=== PATIENT | female | born 1980 | race Caucasian/White ===

== ENCOUNTER 2017-06-13 08:55 | Emergency (ER) | payer MEDICAID ==
--- NOTE | 2017-06-13 09:38 | ER Document Report ---
ED General - General Chief Complaint: Abscess Stated Complaint: ABSCESS IN VAGINAL AREA Time Seen by Provider: 06/13/17 09:36 Mode of Arrival: Ambulatory Information source: Patient Notes: Patient is a 37-year-old female who presents with labial abscess that has been present for the past week and a half. She has tried warm baths and warm compresses without any relief. She endorses small amount of bleeding but no drainage. Denies any fever, chills, vaginal discharge, abdominal pain, nausea, vomiting. She states she has had a history of these in her vaginal area and around her rectum that has required drainage previously. She has not taken any medications for this. TRAVEL OUTSIDE OF THE [place] IN LAST 30 DAYS: No - Related Data Allergies/Adverse Reactions: No Known Allergies Allergy (Unverified 06/13/17 09:01) Past Medical History - General Information source: Patient - Social History Smoking Status: Current Every Day Smoker Family History: Reviewed & Not Pertinent Renal/ Medical History: Denies: Hx Peritoneal Dialysis Review of Systems - Review of Systems Constitutional: See HPI EENT: No symptoms reported Cardiovascular: No symptoms reported Respiratory: No symptoms reported Gastrointestinal: No symptoms reported Genitourinary: No symptoms reported Female Genitourinary: See HPI Musculoskeletal: No symptoms reported Skin: See HPI Hematologic/Lymphatic: No symptoms reported Neurological/Psychological: No symptoms reported Physical Exam - Vital signs Vitals: Temp Pulse Resp BP Pulse Ox 97.9 F 108 H 16 132/87 H 95 06/13/17 08:59 06/13/17 08:59 06/13/17 08:59 06/13/17 08:59 06/13/17 08:59 Interpretation: Hypertensive, Tachycardic - Notes Notes: PHYSICAL EXAM: CONSTITUTIONAL: Alert and oriented, well-appearing and in no acute distress. HENT: Normocephalic, atraumatic. Moist mucous membranes. EYES: Pupils equal round and reactive to light, EOM intact. Sclera anicteric, conjunctiva are normal. No entrapment. HEART: Regular rate and rhythm without murmurs. LUNGS: CTAB and equal. No wheezes, rales or rhonchi. COUNTY ATTORNEY: right labia - 3 cm area of fluctuance consistent with abscess, no bartholin gland cyst noted. EXTREMITIES: Normal range of motion, no pitting edema. No cyanosis. Cap Refill < 3 seconds. NEURO: Cranial nerves grossly intact. Normal sensory/motor exams. SKIN: Warm and dry. Normal turgor. No rashes or lesions noted. Course - Re-evaluation Re-evalutation: 06/13/17 09:38 Patient seen and examined. Right labial abscess - will perform I&D. No systemic signs of infection. Wound culture obtained and pending. 06/13/17 10:18 I&D performed, patient tolerated well. Iodoform packing left in place, Discussed wound care and return in 2 days for packing removal/wound recheck At this time, will discharge with return precautions and follow-up recommendations. Verbal discharge instructions given at the bedside and opportunity for questions given. Medication warnings reviewed. Patient is in agreement with this plan and has verbalized understanding of return precautions and the need for primary care follow-up in the next 24-72 hours. - Vital Signs Vital signs: Temp Pulse Resp BP Pulse Ox 97.9 F 108 H 16 132/87 H 95 06/13/17 08:59 06/13/17 08:59 06/13/17 08:59 06/13/17 08:59 06/13/17 08:59 Procedures - Incision and Drainage Right Labia Type: Simple Anesthetic type: 1% Lidocaine mL's of anesthetic: 7 Blade size: 11 I&D procedure: Betadine prep applied, Iodoform packing placed, Sterile dressing applied, Other - Irrigated with saline 40 cc's Incision Method: Incision made by scalpel Amount/type of drainage: 5 cc's of purulent/serosanguinous drainage Notes: 06/13/17 10:17 iodoform packing left in place Female anatomy: 1 - 3 cm fluctuant abscess to external labial majora Discharge - Discharge Clinical Impression: Abscess of right genital labia Condition: Stable Disposition: HOME, SELF-CARE Additional Instructions: ABSCESS: You have an abscess (boil). This a pus-forming infection, usually due to staph. Some boils may be left to drain on their own, but most require lancing. From the time the tender lump first appears, it may be three or four days before the abscess is ready to mallory. Local heat and rest help at this stage of treatment. An antibiotic may prevent spread of the infection. Once the abscess is opened, packing may be placed into it. This is done so pus is not sealed inside by premature closure of the cavity. The packing will be removed at your follow-up visit or you may be advised to remove it yourself at home. Sometimes this packing must be replaced a few times during healing. The wound will heal with surprisingly little scar. Depending on the size and location of an abscess, healing can take one to four weeks. You may shower and wash the area around the incision site two or three times a day. Antibiotics may be prescribed, but are usually not necessary after an abscess has been drained. If you develop fever, chills, worsening pain, or increasing swelling in the area, call the doctor or return immediately. POST INCISION AND DRAINAGE: You have had an incision made to allow drainage of an abscess. The incision must remain open so that pus and debris can drain from the wound. If the abscess cavity is large, packing is placed. This keeps the tissues from collapsing and trapping pus inside, while the body shrinks the cavity. The packing may need to be replaced every day or two. The physician will instruct you on the packing. Keep a bulky dressing over the area. Replace it if it becomes saturated with blood or pus. Do not disturb the packing (if present). You may shower and cleanse the area with gentle soap and warm water two or three times a day. Local warmth may be soothing, and may promote faster healing. Return if you develop high fever or chills, or if you note spreading redness, increasing swelling, or increasing tenderness. MRSA CELLULITIS: You have an infection of your skin and underlying soft tissues called cellulitis. This is due to bacteria, which can enter through any break in the skin, or even through an irritated hair follicle. Untreated, cellulitis will usually worsen and may form an abscess which requires draining. Although many bacterial organisms can cause cellulitis and abscess formations, the most likely bacteria is Methicillin-Resistant Staph Aureus, or MRSA for short. Antibiotics are required. Usually, warm packs or warm soaks, and elevation of the infected area are recommended. You should start getting better within 24 to 36 hours. Most infections respond quickly to the right medication. Follow-up care is important, however, to check for abscess (boil) formation, unsuspected foreign body, or resistant infection. If you develop fever, chills, or if the area of infection is becoming rapidly more swollen or painful, call the doctor at once. ORAL NARCOTIC MEDICATION: You have been given a prescription for pain control. This medication is a narcotic. It's best taken with food, as nausea can result if taken on an empty stomach. Don't operate machinery or drive within six hours of taking this medication. Do not combine this medicine with alcohol, or with any medication which can cause sedation (such as cold tablets or sleeping pills) unless you get permission from the physician. Narcotics tend to cause constipation. If possible, drink plenty of fluids and eat a diet high in fiber and fruits. TRIMETHOPRIM-SULFA: You have been given a prescription for trimethoprim-sulfa (TMS, Septra, Bactrim). This is a combination antibiotic of the sulfa class, often used for urinary tract infections, middle ear infections, bronchitis, shigella intestinal infection, and Pneumocystis pneumonia. TMS is usually well-tolerated. Occasional side effects include nausea and decreased appetite. Septra is not recommended for infants less than two months of age. Do not take this medication if you have experienced severe side effects or allergy to sulfa medicine. You should stop this medicine at once and contact your physician if you develop any rash, joint pain, shortness of breath, bruising, or jaundice ( yellow color in the skin), or if you develop any other new or unusual symptoms. FOLLOW-UP CARE: Most simple abscesses will not require a follow up visit. If you had packing placed in the abscess, remove it as instructed by the physician. If you have been referred to a physician for follow-up care, call the physicians office for an appointment as you were instructed or within the next two days. If you experience worsening or a significant change in your symptoms, return to the Emergency Department at any time for re-evaluation. Prescriptions: Hydrocodone/Acetaminophen [Vicodin 5-300 mg Tablet] 1 tab PO ASDIR PRN #15 tab PRN Reason: Sulfamethoxazole/Trimethoprim [Bactrim Ds Tablet] 1 tab PO BID 7 Days tablet Forms: Elevated Blood Pressure Referrals: JENNA CONSTANTINO DO [Primary Care Provider] - 06/15/17 (for packing removal and wound check)
[2017-06-13] MEDS ORDERED: LIDOCAINE 1% INJ-PF (10 MG/ML) 30 ML SDV INJ ONE (09:43)
[2017-06-13] MEDS ORDERED: HYDROCODONE/ACETAMINOPHEN 5-325 MG TABLET PO ONE (09:45)
[2017-06-13 10:38] VITALS: BP 131/94
== END 2017-06-13 10:35 | disposition home or self-care (01) ==
LOC: ER 08:55
PROC: 0U9MXZZ Drainage of Vulva, External Approach (ICD-10-PCS; principal; 2017-06-13)
DX: N76.4 Abscess of vulva (principal); F17.200 Nicotine dependence, unspecified, uncomplicated
CPT/HCPCS: 99283; 87070; 87205; 87075; 87077; 87186; 56405; A6266; J3490

== ENCOUNTER 2018-02-26 18:41 | Emergency (ER) | payer MEDICAID ==
[2018-02-26] MEDS ORDERED: ACETAMINOPHEN 325 MG TABLET PO ONE (19:36)
--- NOTE | 2018-02-26 19:39 | ER Document Report ---
ED Medical Screen (RME) - General Chief Complaint: Vaginal Bleeding Stated Complaint: VAGINAL BLEEDING Time Seen by Provider: 02/26/18 19:35 Notes: Patient is a 37-year-old female who presents emergency department the chief complaint of vaginal bleeding that started over the past 2 days. States describes it as mild to moderate spotting without any clots or usage of pads. She denies any bleeding requiring pads to be changed every 20 minutes. Patient states that this is abnormal for her. Her last menstrual period was February 11- . She denies any history of abnormal vaginal bleeding in the past. 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 Otherwise denies any other medical problems. She admits to cramping pelvic and suprapubic pain worse on the right side but bilateral TRAVEL OUTSIDE OF THE [place] IN LAST 30 DAYS: No - Related Data Allergies/Adverse Reactions: No Known Allergies Allergy (Verified 02/26/18 18:43) Past Medical History Renal/ Medical History: Denies: Hx Peritoneal Dialysis Past Surgical History: Reports: Hx Orthopedic Surgery - Immunizations Hx Diphtheria, Pertussis, Tetanus Vaccination: Yes Physical Exam - Vital signs Vitals: Temp Pulse Resp BP Pulse Ox 97.6 F 85 16 138/75 H 100 02/26/18 19:34 02/26/18 19:34 02/26/18 19:34 02/26/18 19:34 02/26/18 19:34 - Notes Notes: PHYSICAL EXAM GENERAL: Alert, interacts well. ABDOMEN: Soft, nondistended, nontender. No guarding, rebound, or rigidity.. EXTREMITIES: Moves all 4 extremities spontaneously. No edema, No cyanosis. NEUROLOGICAL: Alert and oriented x4. Normal speech. PSYCH: Normal affect, normal mood. Course - Vital Signs Vital signs: Temp Pulse Resp BP Pulse Ox 97.6 F 85 16 138/75 H 100 02/26/18 19:34 02/26/18 19:34 02/26/18 19:34 02/26/18 19:34 02/26/18 19:34 Doctor's Discharge - Discharge Referrals: JENNA CONSTANTINO DO [Primary Care Provider] - Follow up as needed
[2018-02-26 20:29] LABS: ABSOLUTE BASOPHILS # (AUTO) 0.1 10^3/uL (0.0-0.2); ABSOLUTE EOSINOPHILS # (AUTO) 0.2 10^3/uL (0.0-0.6); ABSOLUTE MONOCYTES (AUTO) 0.4 10^3/uL (0.1-1.4); ABSOLUTE NEUT (AUTO) 8.1 10^3/uL (1.7-8.2); BASOPHILS % (AUTO) 0.5 % (0-2); EOSINOPHILS % (AUTO) 1.5 % (0-6); HEMATOCRIT 36.5 % (36.0-47.0); HEMOGLOBIN 11.9 g/dL (12.0-15.5); LYMPHOCYTES % (AUTO) 31.2 % (13-45); MEAN CORPUSCULAR HEMOGLOBIN 25.1 pg (27.0-33.4); MEAN CORPUSCULAR HGB CONC 32.6 g/dL (32.0-36.0); MEAN CORPUSCULAR VOLUME 77 fl (80-97); MONOCYTES % (AUTO) 3.4 % (3-13); PLATELET COUNT 482 10^3/uL (150-450); RED BLOOD COUNT 4.74 10^6/uL (3.72-5.28); RED CELL DISTRIBUTION WIDTH 19.1 % (11.5-14.0); SEGMENTED NEUTROPHILS % (AUTO) 63.4 % (42-78); TOTAL CELLS COUNTED % (AUTO) 100 %; WHITE BLOOD COUNT 12.8 10^3/uL (4.0-10.5)
[2018-02-26 20:39] LABS: APPEARANCE,URINE SLIGHTLY-CLOUDY; BILIRUBIN,URINE NEGATIVE (NEGATIVE); COLOR,URINE YELLOW; GLUCOSE, URINE NEGATIVE (NEGATIVE); KETONES,URINE NEGATIVE (NEGATIVE); LEUKOCYTE ESTERASE,URINE LARGE (NEGATIVE); NITRITE,URINE NEGATIVE (NEGATIVE); PROTEIN,URINE NEGATIVE (NEGATIVE); URINE SPECIFIC GRAVITY 1.014; UROBILINOGEN,URINE NEGATIVE mg/dL (<2.0)
--- NOTE | 2018-02-26 22:17 | ER Document Report ---
ED General - General Chief Complaint: Vaginal Bleeding Stated Complaint: VAGINAL BLEEDING Time Seen by Provider: 02/26/18 19:35 Notes: Patient is a 37-year-old female who presents emergency department the chief complaint of vaginal bleeding that started over the past 2 days. States describes it as mild to moderate spotting without any clots or usage of pads. She denies any bleeding requiring pads to be changed every 20 minutes. Patient states that this is abnormal for her. Her last menstrual period was February 11- . She denies any history of abnormal vaginal bleeding in the past. States that she does follow with an [employer] in her hometown and had a normal Pap smear a year ago but was told that she was positive for HPV. Otherwise denies any other medical problems. She admits to cramping pelvic and suprapubic pain worse on the right side but bilateral TRAVEL OUTSIDE OF THE [place] IN LAST 30 DAYS: No - Related Data Allergies/Adverse Reactions: No Known Allergies Allergy (Verified 02/26/18 18:43) Past Medical History - Social History Smoking Status: Current Every Day Smoker Frequency of alcohol use: Occasional Family History: Reviewed & Not Pertinent Patient has suicidal ideation: No Patient has homicidal ideation: No Renal/ Medical History: Denies: Hx Peritoneal Dialysis Past Surgical History: Reports: Hx Orthopedic Surgery, Hx Tubal Ligation - Immunizations Hx Diphtheria, Pertussis, Tetanus Vaccination: Yes Review of Systems - Review of Systems Constitutional: No symptoms reported EENT: No symptoms reported Cardiovascular: No symptoms reported Respiratory: No symptoms reported Gastrointestinal: No symptoms reported Genitourinary: See HPI Female Genitourinary: See HPI Musculoskeletal: No symptoms reported -: Yes All other systems reviewed and negative Physical Exam - Vital signs Vitals: Temp Pulse Resp BP Pulse Ox 97.6 F 85 16 138/75 H 100 02/26/18 19:34 02/26/18 19:34 02/26/18 19:34 02/26/18 19:34 02/26/18 19:34 - Notes Notes: PHYSICAL EXAM GENERAL: Alert, interacts well. HEAD: Normocephalic, atraumatic. EYES: Pupils equal, round, and reactive to light. Extraocular movements intact. ENT: Oral mucosa moist, tongue midline. NECK: Full range of motion. Supple. Trachea midline. LUNGS: Clear to auscultation bilaterally, no wheezes, rales, or rhonchi. No respiratory distress. HEART: Regular rate and rhythm. No murmurs, gallops, or rubs. ABDOMEN: Soft, nondistended, nontender. No guarding, rebound, or rigidity.. Bowel sounds present in all 4 quadrants. FEMALE : Normal external exam. No evidence of lesions, lacerations, bruising or vesicles. Speculum exam normal cervix closed. No evidence of vaginal discharge with odor. No evidence of lesions. Mild bleeding within the vaginal vault. Bimanual exam normal no cervical motion tenderness. No adnexal mass or adnexal tenderness. EXTREMITIES: Moves all 4 extremities spontaneously. No edema, radial and dorsalis pedis pulses 2/4 bilaterally. No cyanosis. NEUROLOGICAL: Alert and oriented x4. Normal speech. PSYCH: Normal affect, normal mood. SKIN: Warm, dry, normal turgor. No rashes or lesions noted. Course - Re-evaluation Re-evalutation: 02/27/18 00:09 Presentation is most consistent with dysfunctional uterine bleeding and otherwise well-appearing patient. Her hemoglobin was within normal limits. She is not . No tachycardia or hypotension. Examination with mild Right adenexal discomfort. She denies bleeding through more than 2 pads an hour at any point in time. US without abnormalities. Minimal bleeding at this time. Patient will be started on oral control pills to help discontinue the bleeding. Declining STD prophylaxis She has been encouraged to follow-up with [employer]. Return precautions have been discussed. - Vital Signs Vital signs: Temp Pulse Resp BP Pulse Ox 97.4 F 77 16 114/66 99 02/27/18 00:26 02/27/18 00:26 02/27/18 00:26 02/27/18 00:26 02/27/18 00:26 - Laboratory Result Diagrams: 02/26/18 20:00 Laboratory results interpreted by me: 02/26/18 02/26/18 20:00 20:00 WBC 12.8 H Hgb 11.9 L MCV 77 L MCH 25.1 L RDW 19.1 H Plt Count 482 H Urine Blood LARGE H Ur Leukocyte Esterase LARGE H - Diagnostic Test Radiology reviewed: Reports reviewed Discharge - Discharge Clinical Impression: Dysfunctional uterine bleeding Condition: Good Disposition: HOME, SELF-CARE Additional Instructions: VAGINAL BLEEDING: You are having an episode of abnormal bleeding. Causes of abnormal vaginal bleeding can include miscarriage or tubal , tumors such as cancer or benign fibroids, medication effects, or hormone imbalance. Testing can eliminate unsuspected , tumors, or infection as a cause. "Dysfunctional uterine bleeding" is due to hormone imbalance, and is especially common at times when the normal cycle is disturbed -- whether by recent , use of control pills or hormones, or impending menopause. If the bleeding is innocent, most commonly a short course of hormones is given to restore the uterus to normal. Sometimes, the normal menstrual cycle corrects itself naturally. Sometimes , brief hormone therapy, or even a D&C is required. Your physician will advise you. Treatment for anemia may be required if bleeding is severe. You should rest and avoid intercourse until the bleeding is controlled. Call the doctor or return for re-examination if you feel faint, have increasing pain, or have a major increase in the amount of bleeding. NORMAL EXAM AND WORKUP: At this time, except for vaginal bleeding, your examination and workup show no significant abnormality. No significant abnormal physical findings were noted. All laboratory, EKG, and imaging (x-ray, CT scans, ultrasound) studies that were ordered show no significant abnormality. Although your examination and all studies that were ordered showed no significant abnormal finding, there are no examinations and no studies that are 100% accurate. There is always the possibility that some abnormality could exist and not be detected with physical examination or within the limits and capabilities of laboratory and other studies. You should return or follow up as you were instructed on your visit today for further evaluation if your symptoms do not resolve. PROVERA: Provera (medroxyprogesterone) is usually used to stop excessive uterine bleeding or to regulate the periods. Provera is a form of progesterone, the hormone that stimulates the uterus lining to mature during the second half of your cycle. High doses of Provera can usually stop uterine bleeding. It's most useful for the abnormal bleeding that occurs when periods are irregular, such as around menopause. Provera usually isn't helpful for bleeding that occurs after Depo-Provera or Norplant. There is often another heavy "period" when you finish the Provera. Afterwards, the periods usually return to normal within a month or two. Contact your doctor if bleeding becomes more severe, or if you develop abdominal pain, lightheadedness, fever, or other new symptoms. FOLLOW-UP CARE: If you have been referred to a physician for follow-up care, call the physician s office for an appointment as you were instructed or within the next two days. If you experience worsening or a significant change in your symptoms (very heavy bleeding with large clots of blood, passage of tissue, more severe abdominal / pelvic pain or cramping, feeling faint or severe weakness, fever, etc.), notify the physician immediately or return to the Emergency Department at any time for re-evaluation. OBSTETRIC-GYNECOLOGIC (OB-INSURANCE SERVICE REPRESENTATIVE) [facility] IN [place]: [facility] [address] [place] [address] [phone] Prescriptions: Medroxyprogesterone Acet [Provera 10 Mg Tablet] 10 mg PO DAILY #7 tablet Forms: Parent Work Note Referrals: JENNA CONSTANTINO DO [NO LOCAL MD] - Follow up as needed MIGUELINA GONZALEZ MD [ACTIVE STAFF] - Follow up in 3-5 days
[2018-02-26 23:31] LABS: T.VAGINALIS (WET MOUNT) NO TRICHOMONAS SEEN; WBCS (WET MOUNT) RARE WBCS SEEN; YEAST (WET MOUNT) NO YEAST SEEN
[2018-02-26 23:32] LABS: RBCS (WET MOUNT) 3+ RBCS SEEN
--- NOTE | 2018-02-27 00:02 | RADIOLOGY REPORT (SQ) ---
EXAM DESCRIPTION: Complete pelvic ultrasound CLINICAL HISTORY: 37 years Female, vaginal bleeding for 3 days, right adnexal pain COMPARISON: None. TECHNIQUE: Complete pelvic ultrasound with transvaginal imaging. Limited color and spectral Doppler imaging of the right ovary. LMP 02/12/2018 FINDINGS: Uterus measures 7.4 x 5.0 x 4.1 cm. Endometrial thickness of 0.9 cm. Nabothian cysts in the cervix. No myometrial abnormalities. The cervix measures 2.1 cm in length and is closed. The left ovary is not identified. The right ovary measures 4.2 x 2.9 x 2.2 cm. Arterial and venous blood flow confirmed in the right ovary. No large adnexal masses. No free pelvic fluid. IMPRESSION: 1. No sonographic abnormality identified in the pelvis. The left ovary is not visualized.
[2018-02-27 00:28] VITALS: BP 114/66
[2018-02-27 00:58] LABS: CHLAM PCR NOT DETECTED (NOT DETECT); GON PCR NOT DETECTED (NOT DETECT)
== END 2018-02-27 00:30 | disposition home or self-care (01) ==
LOC: ER 18:41
DX: N93.8 Other specified abnormal uterine and vaginal bleeding (principal); F17.200 Nicotine dependence, unspecified, uncomplicated; Z98.51 Tubal ligation status
CPT/HCPCS: 36415; 76830; 81001; 81025; 85025; 87210; 87491; 87591; 93976; 99284

== ENCOUNTER 2018-06-21 13:16 | Emergency (ER) | payer MEDICAID ==
[2018-06-21 13:40] VITALS: BP 129/64
[2018-06-21] MEDS ORDERED: PROCHLORPERAZINE EDISYLATE INJ 10 MG/2 ML VIAL IV ONE (14:30)
[2018-06-21] MEDS ORDERED: KETOROLAC TROMETHAMINE INJ/PF 30 MG/1 ML SDV IV ONE (14:30)
[2018-06-21] MEDS ORDERED: NORMAL SALINE 1000 ML 1,000 ML IV ONE (14:30)
[2018-06-21] MEDS ORDERED: DIPHENHYDRAMINE HCL 50 MG/ML VIAL IV ONE (14:30)
--- NOTE | 2018-06-21 14:33 | ER Document Report ---
ED Medical Screen (RME) - General Chief Complaint: Headache Stated Complaint: HEADACHE Time Seen by Provider: 06/21/18 14:26 Mode of Arrival: Ambulatory Information source: Patient Notes: Patient is a 38-year-old female who presents with chief complaint of headache 4 days. Patient reports that she woke up 4 days ago with a headache on one side of her head and it has spread to the entire head. Patient denies ever had a headache like this before. Patient denies any fever or recent illness. Patient reports she has tried Aleve without any success. Exam: Patient alert, oriented. No neurological deficits noted. Lung sounds clear to auscultation. I have greeted and performed a rapid initial assessment of this patient. A comprehensive ED assessment and evaluation of the patient, analysis of test results and completion of the medical decision making process will be conducted by additional ED providers. Dictation of this chart was performed using voice recognition software; therefore, there may be some unintended grammatical errors. TRAVEL OUTSIDE OF THE [place] IN LAST 30 DAYS: No - Related Data Allergies/Adverse Reactions: No Known Allergies Allergy (Verified 06/21/18 13:17) Past Medical History - Social History Chew tobacco use (# tins/day): No Frequency of alcohol use: None Drug Abuse: None Neurological Medical History: Reports: Hx Migraine Endocrine Medical History: Reports: Hx Diabetes Mellitus Type 2 Renal/ Medical History: Denies: Hx Peritoneal Dialysis Past Surgical History: Reports: Hx Orthopedic Surgery, Hx Tubal Ligation - Immunizations Hx Diphtheria, Pertussis, Tetanus Vaccination: Yes Physical Exam - Vital signs Vitals: Temp Pulse Resp BP Pulse Ox 98.7 F 86 16 129/64 H 98 06/21/18 13:39 06/21/18 13:39 06/21/18 13:39 06/21/18 13:39 06/21/18 13:39 Course - Vital Signs Vital signs: Temp Pulse Resp BP Pulse Ox 98.7 F 86 16 129/64 H 98 06/21/18 13:39 06/21/18 13:39 06/21/18 13:39 06/21/18 13:39 06/21/18 13:39
== END 2018-06-21 17:15 | disposition left against medical advice (07) ==
LOC: ER 13:16
DX: R51 Headache (principal)
CPT/HCPCS: 99281; 96361; 96374; 96375; J1200; J1885; J0780

== ENCOUNTER 2018-06-23 02:27 | Emergency (ER) | payer MEDICAID ==
[2018-06-23 02:44] VITALS: BP 115/68
[2018-06-23] MEDS ORDERED: ONDANSETRON 4 MG TAB.RAPDIS PO ONE (03:42)
== END 2018-06-23 04:40 | disposition left against medical advice (07) ==
LOC: ER 02:27
DX: Z53.21 Procedure and treatment not carried out due to patient leaving prior to being seen by health care provider (principal)
CPT/HCPCS: S0119

== ENCOUNTER 2018-11-19 05:25 | Day surgery (SDC) | payer MEDICAID ==
[2018-11-12 10:46] LABS: HEMOGLOBIN 11.4 g/dL (12.0-15.5); MEAN CORPUSCULAR HEMOGLOBIN 23.8 pg (27.0-33.4); MEAN CORPUSCULAR HGB CONC 32.6 g/dL (32.0-36.0); MEAN CORPUSCULAR VOLUME 73 fl (80-97); PLATELET COUNT 413 10^3/uL (150-450); RED CELL DISTRIBUTION WIDTH 19.3 % (11.5-14.0); WHITE BLOOD COUNT 13.2 10^3/uL (4.0-10.5)
[2018-11-12 11:11] LABS: APPEARANCE,URINE SLIGHTLY-CLOUDY; BILIRUBIN,URINE NEGATIVE (NEGATIVE); COLOR,URINE YELLOW; GLUCOSE, URINE 50 mg/dL (NEGATIVE); KETONES,URINE NEGATIVE (NEGATIVE); LEUKOCYTE ESTERASE,URINE LARGE (NEGATIVE); NITRITE,URINE NEGATIVE (NEGATIVE); PROTEIN,URINE NEGATIVE (NEGATIVE); URINE SPECIFIC GRAVITY 1.009; UROBILINOGEN,URINE NEGATIVE mg/dL (<2.0)
[2018-11-12 11:12] LABS: ALANINE AMINOTRANSFERASE 26 U/L (9-52); ALBUMIN 4.5 g/dL (3.5-5.0); ALKALINE PHOSPHATASE 82 U/L (38-126); ANION GAP 9 (5-19); ASPARTATE AMINO TRANSFERASE 23 U/L (14-36); BILIRUBIN,DIRECT 0.3 mg/dL (0.0-0.4); BILIRUBIN,TOTAL 0.3 mg/dL (0.2-1.3); BLOOD UREA NITROGEN 7 mg/dL (7-20); CALCIUM 9.7 mg/dL (8.4-10.2); CARBON DIOXIDE 27 mmol/L (22-30); CHLORIDE 102 mmol/L (98-107); GLUCOSE 189 mg/dL (75-110); POTASSIUM 4.9 mmol/L (3.6-5.0); SODIUM 138.4 mmol/L (137-145); TOTAL PROTEIN 7.4 g/dL (6.3-8.2)
[~2018-11-19 05:25] MED LIST: CEFAZOLIN 1 GM/D5W RTU 1 GM/50 ML RTUPB IV ONE; CEFAZOLIN 1 GM/D5W RTU 1 GM/50 ML RTUPB IV PRN; LACTATED RINGERS 1000 ML IV PRN; LIDOCAINE 0.5% INJ-PF (5 MG/ML) 50 ML SDV SUBCUT PRN
[2018-11-19 06:17] LABS: HEMATOCRIT 34.4 % (36.0-47.0); HEMOGLOBIN 11.1 g/dL (12.0-15.5); MEAN CORPUSCULAR HEMOGLOBIN 23.8 pg (27.0-33.4); MEAN CORPUSCULAR HGB CONC 32.3 g/dL (32.0-36.0); MEAN CORPUSCULAR VOLUME 74 fl (80-97); PLATELET COUNT 356 10^3/uL (150-450); RED BLOOD COUNT 4.67 10^6/uL (3.72-5.28); RED CELL DISTRIBUTION WIDTH 19.6 % (11.5-14.0); WHITE BLOOD COUNT 10.8 10^3/uL (4.0-10.5)
[2018-11-19] MEDS ORDERED: MIDAZOLAM 2 MG/2 ML INJ ONE (07:03)
[2018-11-19] MEDS ORDERED: PROPOFOL INJ 200 MG/20 ML VIAL IV ONE ×2 (07:03→09:01)
[2018-11-19] MEDS ORDERED: EPHEDRINE SULFATE INJ 50 MG/1 ML AMPULE ONE (07:03)
[2018-11-19] MEDS ORDERED: FENTANYL CITRATE INJ/PF 250 MCG/5 ML AMPULE ONE (07:03)
[2018-11-19] MEDS ORDERED: BUPIVACAINE HCL 0.25 % INJ/PF (2.5 MG/1 ML) 30 ML VIAL ONE (07:07)
[2018-11-19] MEDS ORDERED: PROMETHAZINE HCL INJ 25 MG/1 ML VIAL IV PRN ×2 (08:01)
[2018-11-19] MEDS ORDERED: FENTANYL CITRATE INJ/PF 100 MCG/2 ML AMPUL IV PRN ×3 (08:01)
[2018-11-19] MEDS ORDERED: DIPHENHYDRAMINE HCL 50 MG/ML VIAL IV PRN (08:01)
[2018-11-19] MEDS ORDERED: OXYCODONE-ACETAMINOPHEN 5-325 MG TABLET PO PRN ×3 (08:01→09:14)
[2018-11-19] MEDS ORDERED: MEPERIDINE HCL/PF INJ 25 MG/1 ML DISP.SYRIN IV PRN (08:01)
[2018-11-19] MEDS: FENTANYL CITRATE INJ/PF 100 MCG/2 ML AMPUL ONE ×2 (09:02→09:08)
--- NOTE | 2018-11-19 09:07 | OPERATIVE REPORT E ---
Operative Report NAME: ALISE SUERO : 1980 AGE: 38Y DATE OF SURGERY: 11/19/2018 ROOM: PREOPERATIVE DIAGNOSIS: Menorrhagia. POSTOPERATIVE DIAGNOSIS: Menorrhagia. OPERATION: [facility]. SURGEON: Paris GONZALEZ M.D. ANESTHESIA: General. ESTIMATED BLOOD LOSS: Approximately 150 mL. TISSUE REMOVED: Uterus and tubes. PROCEDURE: The patient was placed in the dorsal lithotomy position, prepped and draped in the usual sterile fashion. A speculum was placed. The cervix was visualized and grasped with a single-tooth tenaculum. Hulka tenaculum was placed and single-tooth tenaculum was removed. Attention was turned to the abdomen where a subumbilical semilunar incision was made. Trocar was introduced with insufflation of the abdomen. The tubes, uterus, and ovaries were visualized. There were adhesions from the bowel to the left adnexal wall but did not encumber the removal of the uterus and tubes. A second puncture was made lateral to the first and the 5 trocar was introduced, and a third suprapubically 5 was introduced. Using harmonic scalpel the left tube was removed along the mesosalpinx. This was carried down the broad ligament to just above the ascending branch of the uterine artery on the left. The procedure was repeated on the right and the bladder flap was then created with sharp dissection. The instruments were removed and attention turned to the pelvis. A speculum was placed. The Hulka tenaculum was removed. The cervix was grasped with a Talha thyroid clamp. Posterior cul-de-sac was entered with sharp dissection. Posterior parietal peritoneum was sutured to the posterior cuff with 2-0 Vicryl. Left uterosacral was clamped, divided, and sutured with 2-0 Vicryl and repeated on the right. Cervix was sharply circumscribed. Serial clamps were used down the uterus, each pedicle being divided and sutured with 2-0 Vicryl. This continued to the level where the above incisions were encountered and the uterus and tubes were removed. Pedicles were inspected and hemostasis was noted. Cuff was closed with [id number] sutures of 2-0 Vicryl and hemostasis was noted. Attention was then turned back to the abdomen which was reinflated. The laparoscope was then placed and the pelvis was visualized and there was a small amount of bleeding noted on the right angle of the cuff, and this was cauterized with a Kleppinger. The pelvis was irrigated with normal saline and hemostasis was noted. The instruments were removed, the abdomen deflated, trocar sleeves removed. The subumbilical incision was closed using 0 Vicryl to close the fascia and 4-0 for subcu. Two punctures were closed using subcu 4-0 Vicryl. All counts were correct. She tolerated it well. Urine remained clear throughout the procedure. She was taken to the recovery room in good condition. DICTATING PHYSICIAN: Paris GONZALEZ M.D. [id number] PHY#: [id number] ID: [id number] JOB#: [id number] ACCT: [id number] cc:Paris GONZALEZ M.D. >
[2018-11-19] MEDS ORDERED: MORPHINE SULFATE 10 MG/ML INJ ONE (09:14)
[2018-11-19] MEDS ORDERED: ONDANSETRON 4 MG TAB.RAPDIS PO PRN (09:45)
[2018-11-19] MEDS ORDERED: SUCCINYLCHOLINE CHLORIDE INJ 200 MG/10 ML VIAL ONE (11:44)
[2018-11-19] MEDS ORDERED: ROCURONIUM BROMIDE INJ 50 MG/5 ML VIAL IV ONE (11:44)
[2018-11-19] MEDS ORDERED: ONDANSETRON HCL INJ/PF 4 MG/2 ML SDV ONE (11:44)
[2018-11-19] MEDS ORDERED: GLYCOPYRROLATE 1 MG/5 ML SYRINGE ONE (11:44)
[2018-11-19] MEDS ORDERED: LIDOCAINE 2% INJ-PF (20 MG/ML) 2 ML AMPUL ONE (11:44)
[2018-11-19] MEDS ORDERED: DEXAMETHASONE SOD PHOSPHATE INJ 4 MG/1 ML VIAL ONE (11:44)
[2018-11-19] MEDS ORDERED: NEOSTIGMINE METHYLSULFATE 10 MG/10 ML VIAL ONE (11:44)
[2018-11-19] MEDS ORDERED: IBUPROFEN 800 MG TABLET PO SCH (14:00)
[2018-11-19 15:26] VITALS: BP 147/89
== END 2018-11-19 15:54 | disposition home or self-care (01) ==
LOC: OROUT 05:25 → 2S 11:33 → OROUT 15:54
PROVIDERS: ATTEND Obstetrics & Gynecology Gynecology
DX: N92.0 Excessive and frequent menstruation with regular cycle (principal); N72 Inflammatory disease of cervix uteri; N80.0 Endometriosis of uterus; N83.8 Other noninflammatory disorders of ovary, fallopian tube and broad ligament; E11.9 Type 2 diabetes mellitus without complications; E78.00 Pure hypercholesterolemia, unspecified; F17.210 Nicotine dependence, cigarettes, uncomplicated; E66.9 Obesity, unspecified; Z68.42 Body mass index [BMI] 45.0-49.9, adult; Z79.84 Long term (current) use of oral hypoglycemic drugs
CPT/HCPCS: 86900; 86901; 36415 ×2; 86870; 86850; 86922; 82962; 85027 ×2; 81025; 80053; 81001; 86920; 86902 ×2; 88307 ×2; 58552; J2250; J0690; J3490 ×4; J1100; J3010 ×2; J2270; J0330; J2405; S0020; J2704; 844